=== PATIENT | male | born 1985 | race Caucasian/White ===

== ENCOUNTER 2016-06-16 09:43 | Emergency (ER) | payer OTHER ==
[~2016-06-16] VITALS: Ht 177.8 cm; Wt 84.1 kg
[2016-06-16 09:46] VITALS: Ht 177.8 cm; Wt 84.1 kg
[2016-06-16] MEDS ORDERED: FAMOTIDINE 20 MG INJ IV ONE (10:00)
[2016-06-16] MEDS ORDERED: ONDANSETRON 4 MG INJ IV STA (10:00)
[2016-06-16] MEDS ORDERED: SOD CHLORIDE 0.9% 1,000 ML IV STA (10:00)
[2016-06-16] MEDS ORDERED: CHLORDIAZEPOXIDE 25 MG CAP PO ONE (10:30)
[2016-06-16 10:34] LABS: ADD SCAN DIFF NO
--- NOTE | 2016-06-16 10:45 | RADRPT ---
PROCEDURE: Chest Radiograph. CLINICAL INDICATION: Chest pain TECHNIQUE: Single frontal chest radiograph. COMPARISON: None available FINDINGS: The cardiomediastinal silhouette is within normal limits. No infiltrate or effusion is seen. Th e bones are intact. IMPRESSION: 1. Unremarkable chest radiograph. RPTAT: AA .Abilio Beltrán MD, MD Date Time Electronically viewed and signed by .Abilio Beltrán MD, on 06/16/2016 10:45 .B/
[2016-06-16 10:48] LABS: ABNORMAL IP MESSAGE 1; HEMATOCRIT 38.4 % (42.0-52.0); HEMOGLOBIN 12.9 g/dl (14.0-18.0); MEAN CORPUSCULAR HEMOGLOBIN 33.2 pg (29.0-33.0); MEAN CORPUSCULAR HGB CONC 33.6 g/dl (32.0-37.0); MEAN PLATELET VOLUME 10.8 fl (7.4-10.4); PLATELET COUNT 93 10^3/UL (140-415); RED BLOOD COUNT 3.88 10^6/ul (4.70-6.10); RED CELL DISTRIBUTION WIDTH 14.6 % (11.5-14.5); WHITE BLOOD COUNT 3.9 10^3/ul (4.8-10.8)
[2016-06-16 10:52] LABS: CHLORIDE 93 mmol/L (97-110); SODIUM 138 mmol/L (135-144)
[2016-06-16 10:55] LABS: ANION GAP 20 (8-16); BLOOD UREA NITROGEN 9 mg/dl (7-20); CARBON DIOXIDE 29 mmol/L (21-31); CREATININE 0.57 mg/dl (0.61-1.24)
[2016-06-16 10:56] LABS: CALCIUM 9.9 mg/dl (8.4-10.2); GLUCOSE 136 mg/dl (70-220); MAGNESIUM 1.8 mg/dl (1.7-2.5)
[2016-06-16 11:12] LABS: TROPONIN-I < 0.012 ng/ml (0.00-0.12)
--- NOTE | 2016-06-16 11:29 | ERD ---
ER Documentation Chief Complaint Date/Time DATE: 06/16/16 TIME: 11:26 Chief Complaint n/v ok to book HPI This is a 31-year-old male who presents to the emergency room for evaluation of chest pain. This patient was arrested by [employer], and stated that he started having chest pain after he started vomiting. The patient does state he drinks alcohol daily. The patient came to the ER with [employer] for clearance. ROS All systems reviewed and are negative except as per history of present illness. Medications Home Meds Unable to Obtain Active Prescriptions or Reported Meds Allergies Allergies: Coded Allergies: Unknown: Unable to obtain (Unverified , 06/16/16) PT IS ALOC PMhx/Soc History of Surgery: No Anesthesia Reaction: No Hx Neurological Disorder: No Hx Respiratory Disorders: No Hx Cardiac Disorders: No Hx Psychiatric Problems: No Hx Miscellaneous Medical Probl: Yes (HEP C , SEIZURES ) Hx Alcohol Use: Yes Hx Substance Use: No Hx Tobacco Use: Yes Smoking Status: Current every day smoker Physical Exam Vitals Vital Signs Date Time Temp Pulse Resp B/P Pulse Ox O2 Delivery O2 Flow Rate FiO2 06/16/16 09:46 98.5 90 18 148/90 100 Physical Exam INITIAL VITAL SIGNS: Reviewed by me GENERAL: The patient has a disheveled appearance HEENT: Dry mucous membranes, pupils equal, round, and reactive to light. EOMI. There is no scleral icterus. NECK: C-spine is soft and supple, there is no meningismus. There is no cervical lymphadenopathy. LUNGS: Clear to auscultation bilaterally. There are no rales, wheezes or rhonchi. HEART: Regular rate and rhythm, no murmurs, clicks, rubs or gallops. ABDOMEN: Soft, non-tender, non-distended. There are bowel sounds in all four quadrants. No rebound or guarding. EXTREMITIES: There is no peripheral cyanosis or edema. No focal swelling or erythema. NEUROLOGICAL: The patient moves all four extremities with 5/5 strength. Cranial nerves II - XII are intact. Normal gait. Alert and oriented SKIN: There is no apparent rash or petechiae. HEME/LYMPHATIC: There is no evidence of excessive bruising or lymphedema. PSYCHIATRIC: The patient does not appear anxious or depressed. Result Diagram: 06/16/16 1005 06/16/16 1005 Results 24 hrs Laboratory Tests Test 06/16/16 10:05 White Blood Count 3.910^3/ul Red Blood Count 3.8810^6/ul Hemoglobin 12.9g/dl Hematocrit 38.4% Mean Corpuscular Volume 99.0fl Mean Corpuscular Hemoglobin 33.2pg Mean Corpuscular Hemoglobin Concent 33.6g/dl Red Cell Distribution Width 14.6% Platelet Count 9310^3/UL Mean Platelet Volume 10.8fl Sodium Level 138mmol/L Potassium Level 4.0mmol/L Chloride Level 93mmol/L Carbon Dioxide Level 29mmol/L Anion Gap 20 Blood Urea Nitrogen 9mg/dl Creatinine 0.57mg/dl Glucose Level 136mg/dl Calcium Level 9.9mg/dl Magnesium Level 1.8mg/dl Troponin I < 0.012ng/ml Current Medications Medications (Trade) Dose Ordered Sig/Andrew Route PRN Reason Start Time Stop Time Status Last Admin Dose Admin Sodium Chloride (NS) 1,000 ml @ 1,000 mls/hr Q1H STAT IV 06/16/16 10:00 06/16/16 10:59 DC 06/16/16 10:16 Ondansetron HCl (Zofran Inj) 4 mg ONCE STAT IV 06/16/16 10:00 06/16/16 10:02 DC 06/16/16 10:16 Famotidine (Pepcid Iv) 20 mg ONCE ONCE IV 06/16/16 10:00 06/16/16 10:02 DC 06/16/16 10:16 Chlordiazepoxide (Librium) 100 mg ONCE ONCE PO 06/16/16 10:30 06/16/16 10:31 DC 06/16/16 10:32 Procedures/MDM EKG: Rate/Rhythm: [Normal Sinus Rhythm] QRS, ST, T-waves: [No changes consistent w/ acute ischemia] Impression: [No evidence of ischemia or arrhythmia] Chest X-ray 1V Interpreted by me: Soft Tissue: No acute abnormalities Bones: No acute abnormalities Mediastinum/Cardiac Silhouette/Lungs: [No acute abnormalities] This 31-year-old male presents to the emergency room for evaluation of chest pain. This patient was arrested by [employer]. The patient was brought to the emergency room originally for clearance. When I evaluated this patient he did have a disheveled appearance, and did have mild agitation. He states his last drink was approximately 12 hours ago and he drinks every day. This patient had lab work drawn including a troponin which was normal. His EKG is nonischemic. His chest x-ray is normal. The patient has a heart score of 0. I did give this patient 100 mg of Librium p.o. He was given Ativan IV as well. This patient is not in [employer] custody at this time, as I have asked the police officers were with him. This patient has no signs of delirium tremens at this time. He will be discharged home with a prescription for Librium. Smoking Cessation Therapy: Pt. was lectured for greater than 3 minutes on the health risks of continued smoking and the benefits of cessation. Departure Diagnosis: Primary Impression: Alcohol withdrawal Additional Impressions: Chest pain Pancytopenia Tobacco abuse Tobacco abuse counseling Nausea and vomiting Condition: RIGOBERTO Beaver DO Jun 16, 2016 11:29
[2016-06-16] MEDS ORDERED: LORAZEPAM 2 MG INJ IV ONE (11:30)
[2016-06-16] MEDS ORDERED: CHLO25CA9 PO (11:30)
[2016-06-16] MEDS ORDERED: ONDA4TAB8 PO (11:31)
[2016-06-16 11:35] LABS: INR 1.01; PROTIME 13.3 Sec (12.2-14.2)
[2016-06-16 11:36] LABS: PARTIAL THROMBOPLASTIN TIME 29.9 Sec (25.0-35.0)
[2016-06-16 13:07] VITALS: BP 149/88; PULSE 68; RESP 18; TEMP 98.5
[2016-06-16 13:23] LABS: LYMPHOCYTES # 0.5 10^3/ul (0.8-2.9); MONOCYTE # 0.4 10^3/ul (0.3-0.9); NEUTROPHIL # 2.7 10^3/ul (1.6-7.5)
== END 2016-06-16 13:36 | disposition home or self-care (01) ==
LOC: E/R 09:43
DX: F10.239 Alcohol dependence with withdrawal, unspecified (principal); R11.2 Nausea with vomiting, unspecified; F17.210 Nicotine dependence, cigarettes, uncomplicated; D61.818 Other pancytopenia; Z71.6 Tobacco abuse counseling
CPT/HCPCS: 36415; 71010; 80048; 83735; 84484; 85025; 85610; 85730; 93005; 96361; 96374; 96375; 99285; J2060; J2405; J7030